=== PATIENT | female | born 1960 | race Caucasian/White ===

== ENCOUNTER 2019-09-06 15:19 | Outpatient (CLI) | payer OTHER, SELFPAY ==
--- NOTE | ~2019-09-06 | MM_ITS ---
EXAMINATION: MM screening joyce BI w mark HISTORY: Screening mammogram TECHNIQUE: Craniocaudal and mediolateral oblique 3-D tomosynthesis images were obtained and synthetic 2-D images were generated. CAD analysis was submitted and interpreted. COMPARISON: 07/17/2018, 01/28/2017 bilateral digital screening mammogram examinations BREAST PARENCHYMAL COMPOSITION: There are scattered areas of fibroglandular density. There is a 4.5 mm circumscribed mass in the inner aspect of the lower inner quadrant of the right homer ast, stable since 01/28/2017, consistent with benign process. Stable scarring in the upper outer quadrant of the left breast, consistent with history of prior repo rtedly benign open left breast biopsy. No suspicious mass or architectural distortion, malignant calcification, skin thickening or retractio n or significant new or developing density is detected. IMPRESSION: 1. No mammographic evidence of malignancy. 2. Recommend routine screening mammography in one year. BI-RADS Category 2: Benign finding(s). Reviewed, dictated and finalized at location A.
== END 2019-09-06 15:20 | disposition home or self-care (01) ==
LOC: ANHIMG 15:27
PROVIDERS: Visit Provider Obstetrics & Gynecology Gynecology
DX: Z12.31 Encounter for screening mammogram for malignant neoplasm of breast (principal)
CPT/HCPCS: 77063; 77067

== ENCOUNTER 2020-12-18 17:15 | Outpatient (CLI) | payer OTHER, SELFPAY ==
--- NOTE | ~2020-12-18 | MM_ITS ---
EXAMINATION: MM screening [facility] BI w mark HISTORY: Screening mammogram TECHNIQUE: Craniocaudal and mediolateral oblique 3-D tomosynthesis images were obtained and synthetic 2-D images were generated. CAD analysis was submitted and interpreted. COMPARISON: 09/06/2019, 07/17/2018, 01/19/1917 BREAST PARENCHYMAL COMPOSITION: There are scattered areas of fibroglandular density. FINDINGS: There is stable architectural distortion in the upper outer left breast at the site of prio r excisional biopsy. There is no evidence of suspicious mass, calcification, or architectural distort ion to suggest malignancy in either breast. There has been no suspicious interval change. IMPRESSION: 1. No mammographic evidence of malignancy. 2. Recommend routine screening mammography in one year. BI-RADS Category 2: Benign finding(s). Reviewed, dictated and finalized at location A.
== END 2020-12-18 17:16 | disposition home or self-care (01) ==
LOC: ANHIMG 17:19
PROVIDERS: Visit Provider Obstetrics & Gynecology Gynecology
DX: Z12.31 Encounter for screening mammogram for malignant neoplasm of breast (principal)
CPT/HCPCS: 77063; 77067

== ENCOUNTER → 2021-04-29 08:15 | Outpatient (CLI) | payer OTHER, SELFPAY ==
--- NOTE | ~2021-04-29 | US_ITS ---
EXAMINATION: US abdomen complete EXAM DATE: 04/29/2021 08:43 INDICATION: Chest, epigastric pain. Elevated liver enzymes. TECHNIQUE: Multiple grayscale and Doppler images of the complete abdomen were obtained (by a technolo gist who performed the scan) and subsequently reviewed. Comparison is made to prior examination from 08/03/2018. FINDINGS: The abdominal aorta is normal in caliber. Visualized portion IVC is patent. The pancreatic head a nd body are normal in appearance. The pancreatic tail is not visualized. The liver has normal echogenicity and contour. There are no focal liver lesions identified. There is no evidence of intrahepatic biliary duct dilation. Portal venous flow was seen in the hepatopedal , normal direction and has normal Doppler waveform. Common bile duct measures 4 mm, which is normal. The gallbladder wall is normal in thickness, with ex pected amount of distention. No sonographic evidence of pericholecystic fluid. There is no cholelit hiases. Technologist performing exam reports patient did not demonstrate sonographic Rehman's sign. Please note that this sign is less reliable in patients who have received pain medication. Right kidney: There is normal contour and echogenicity. It measures 9.5 x 3.3 x 4.1 centimeters. T here are no focal renal lesions identified. There is no hydronephrosis. Left kidney: There is normal contour and echogenicity. It measures 10.2 x 4.0 x 4.9 centimeters. T here are no focal renal lesions identified. There is no hydronephrosis. The spleen measures 9.4 centimeters and is morphologically normal. IMPRESSION: 1. Unremarkable complete abdominal ultrasound exam. Reviewed, dictated and finalized at location A. HER OPERATOR
== END ==
DX: R07.9 Chest pain, unspecified (principal)
CPT/HCPCS: 76700

== ENCOUNTER → 2022-03-03 13:30 | Outpatient (CLI) | payer OTHER, SELFPAY ==
--- NOTE | ~2022-03-03 | MM_ITS ---
EXAMINATION: MM screening joyce BI w mark HISTORY: Screening TECHNIQUE: Craniocaudal and mediolateral oblique 3-D tomosynthesis images were obtained and synthetic 2-D images were generated. CAD analysis was submitted and interpreted. COMPARISON: Comparison to multiple prior studies sequentially, with oldest reviewed study dated 01/28. BREAST PARENCHYMAL COMPOSITION: There are scattered areas of fibroglandular density. FINDINGS: There is no evidence of suspicious mass, calcification, or architectural distortion to sugg est malignancy in either breast. There has been no suspicious interval change. IMPRESSION: 1. No mammographic evidence of malignancy. 2. Recommend routine screening mammography in one year. BI-RADS Category 1: Negative Reviewed, dictated and finalized at location A.
== END ==
PROVIDERS: PCP Obstetrics & Gynecology Gynecology; Visit Provider Obstetrics & Gynecology Gynecology
DX: Z12.31 Encounter for screening mammogram for malignant neoplasm of breast (principal)
CPT/HCPCS: 77063; 77067

== ENCOUNTER 2022-07-26 18:26 | Emergency (ER) | payer OTHER, SELFPAY ==
--- NOTE | ~2022-07-26 | XR_ITS ---
EXAMINATION: [id number] INDICATION: Left chest pain TECHNIQUE: A frontal view of the chest and 3 views of the left ribs were obtained. COMPARISON: None. FINDINGS: The lungs are free of acute opacities. No pleural effusion or pneumothorax. The cardiomedia stinal silhouette is normal. There appear to be nondisplaced anterolateral fractures of the left eigh th and ninth ribs.. IMPRESSION: 1. Apparent nondisplaced anterolateral fractures of the left eighth and ninth ribs. 2. No acute cardiopulmonary abnormality. Reviewed, dictated and finalized at location F. IMPRESSION: 1. Apparent nondisplaced anterolateral fractures of the left eighth and ninth r ibs. 2. No acute cardiopulmonary abnormality.
[2022-07-26 18:37] VITALS: BP 139/102; PULSE 78; RESP 16; TEMP 36.7; O2SAT 100
--- NOTE | 2022-07-26 18:59 | ED.CHESTPAIN ---
HPI - Chest Pain General Chief Complaint: Chest Pain Stated Complaint: fall,lt side injury Time Seen by Provider: 07/26/22 18:50 Source: patient, RN notes reviewed and old records reviewed Mode of arrival: ambulatory Limitations: no limitations History of Present Illness HPI narrative: 62 year old female presents to [facility] with complaints of pain to the left rib cage area after tripping over a toy today and landing on her left side on hardwood floor. Patient also has area of swelling to her left knee also but pain not as severe as her rib area which she rates as 8/10. MD complaint: other (left rib pain, contusion left knee) Onset (ago): hour(s) (today) Pain scale (0-10): 8 Treatment prior to arrival: none Related Data Home Medications Medication Instructions Recorded Confirmed alprazolam 0.25 mg tablet (Xanax) 0.25 mg PO DAILY 07/26/22 07/26/22 aspirin 81 mg tablet 81 mg PO DAILY 07/26/22 07/26/22 Allergies Allergy/AdvReac Type Severity Reaction Status Date / Time ciprofloxacin [From Cipro] Allergy Rash Verified 07/26/22 18:35 codeine Allergy Confusion Verified 07/26/22 18:35 Review of Systems Review of Systems: CONSTITUTIONAL: Denies fever, chills, or sweats. EYES: Denies visual changes, redness, or discharge. ENT: Denies rhinorrhea, congestion, sore throat, or otalgia. CARDIOVASCULAR: Denies chest pain, palpitations, or edema.Reports left rib pain RESPIRATORY: Denies cough or dyspnea. GASTROINTESTINAL: Denies abdominal pain, nausea, vomiting, or diarrhea. GENITOURINARY: Denies dysuria or hematuria. SKIN: Denies rash or itching. MUSCULOSKELETAL: Denies back pain,left knee pain pain, or myalgia. NEUROLOGIC: Denies headache, numbness, or weakness. PSYCHIATRIC: Positive for anxiety or depression. All systems reviewed & are unremarkable except as noted in HPI and below PMFSH Past Medical History Medical History (Updated 07/29/22 @ 10:19 by Deann Pisano NP) Anxiety Aortic aneurysm Heart valve disorder Social History Social History (Updated 07/29/22 @ 10:09 by Deann Pisano NP) Living arrangements: with family Gender identity (if verbalized by the patient): Female Comments At time of signature, agree with nursing past medical, surgical, social and family history. There is no relevant family history pertinent to the presenting complaint Exam Narrative: GENERAL: Well-appearing, well-nourished, and in no acute distress. HEAD: Normocephalic, atraumatic. EYES: PERRLA and EOMI. ENT: Nares clear, no rhinorrhea or epistaxis. Mucous membranes moist.TM's normal, throat pink with no swelling NECK: Supple. no lymphadenopathy CHEST: Clear to auscultation. No respiratory distress. pain left rib cage, SAO2 100% on room air HEART: Regular rate and rhythm. No murmur heard. Normal peripheral pulses. ABDOMEN: Soft, nontender, nondistended, normal active bowel sounds. EXTREMITIES: Normal range of motion. No edema. small amount of swelling and bruising to left knee,full ROM SKIN: Warm, dry, no rash. NEURO: No focal deficits. Alert and oriented Course Course Emergency Course: Patient is aware of diagnosis, understands and agrees to treatment plan.? Anticipatory guidance given.? Patient agrees to follow-up as directed and is aware of reasons to seek care at the emergency department. Portions of this record may have been created with voice recognition software Level of Care: Express Care Visit Vital Signs Vital signs: Vital Signs Temperature 36.7 C 07/26/22 18:37 Pulse Rate 78 07/26/22 18:37 Respiratory Rate 16 07/26/22 18:37 Blood Pressure 139/102 H 07/26/22 18:37 Pulse Oximetry 100 07/26/22 18:37 Oxygen Delivery Room Air 07/26/22 18:37 Temperature 36.7 C 07/26/22 18:37 Pulse Rate 78 07/26/22 18:37 Respiratory Rate 16 07/26/22 18:37 Blood Pressure 139/102 H 07/26/22 18:37 Pulse Oximetry 100 07/26/22 18:37 Oxygen Delivery Room Air 07/26/22 18:37 Reviewed
== END 2022-07-26 19:31 | disposition home or self-care (01) ==
PROVIDERS: Emergency Provider Registered Nurse; PCP Obstetrics & Gynecology Gynecology
DX: S22.42XA Multiple fractures of ribs, left side, initial encounter for closed fracture (principal); S80.02XA Contusion of left knee, initial encounter; Z79.82 Long term (current) use of aspirin; W01.0XXA Fall on same level from slipping, tripping and stumbling without subsequent striking against object, initial encounter
CPT/HCPCS: 71101; 99213; G0463

== ENCOUNTER 2022-11-05 16:55 | Emergency (ER) | payer OTHER, SELFPAY ==
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
[2022-11-05 17:15] VITALS: BP 136/93; PULSE 88; RESP 16; TEMP 36.8; O2SAT 100
== END 2022-11-05 17:47 | disposition home or self-care (01) ==
PROVIDERS: Emergency Provider Nurse Practitioner Family
DX: S50.812A Abrasion of left forearm, initial encounter (principal); S50.12XA Contusion of left forearm, initial encounter; V43.52XA Car driver injured in collision with other type car in traffic accident, initial encounter; F41.9 Anxiety disorder, unspecified; Z79.82 Long term (current) use of aspirin
CPT/HCPCS: 73090; 99213; G0463

== ENCOUNTER 2023-02-19 14:54 | Emergency (ER) | payer MEDICARE, SELFPAY ==
--- NOTE | ~2023-02-19 | XR_ITS ---
EXAMINATION: XR chest 2V Exam Date/Time: 02/19/2023 15:05 CDT HISTORY: cough x 2 weeks Comparison: 08/03/2018. RESULT: Lines, tubes, and devices: None. Lungs and pleura: Biapical pleural scarring, otherwise clear. Cardiomediastinal silhouette: Stable. Other: No acute osseous or upper abdominal finding. IMPRESSION: No acute cardiopulmonary process. Reviewed, dictated and finalized at location K.
[2023-02-19 15:06] VITALS: BP 121/92; PULSE 82; RESP 16; TEMP 36.6; O2SAT 100
--- NOTE | 2023-02-19 15:28 | ED.GENADULT ---
HPI - General Adult General Chief complaint: Upper Respiratory Infection Stated complaint: Congestion Source: patient Mode of arrival: ambulatory Limitations: no limitations History of Present Illness HPI narrative: Patient presents for evaluation of a cough for the last 2 weeks. She had several family members who were also ill but their symptoms have all improved. Cough is productive of green sputum. She has sinus congestion and thick green nasal drainage. She has some mild shortness of breath at baseline but has slightly worse symptoms at present time. She has a sore throat that she attributes to a frequent cough. She denies any fever, chills, nausea, vomiting, diarrhea. She has tried several [id number] agents without improvement in her symptoms or after. She does not smoke. Related Data Home Medications Medication Instructions Recorded Confirmed alprazolam 0.25 mg tablet (Xanax) 0.25 mg PO DAILY 07/26/22 02/19/23 aspirin 81 mg tablet 81 mg PO DAILY 07/26/22 02/19/23 cyclosporine 0.05 % eye drops in a 1 drp EACH EYE BID 02/19/23 02/19/23 dropperette (Restasis) Allergies Allergy/AdvReac Type Severity Reaction Status Date / Time ciprofloxacin [From Cipro] Allergy Rash Verified 02/19/23 15:07 codeine Allergy Confusion Verified 02/19/23 15:07 Review of Systems Review of Systems: CONSTITUTIONAL: Denies fever, chills, or sweats. EYES: Denies visual changes, redness, or discharge. ENT: Reports sinus congestion, thick green drainage from the nares, and sore throat. Denies otalgia. CARDIOVASCULAR: Denies chest pain, palpitations, or edema. RESPIRATORY: reports productive cough of green sputum and shortness of breath. GASTROINTESTINAL: Denies abdominal pain, nausea, vomiting, or diarrhea. GENITOURINARY: Denies dysuria or hematuria. SKIN: Denies rash or itching. MUSCULOSKELETAL: Denies back pain, joint pain, or myalgia. NEUROLOGIC: Denies headache, numbness, dizziness, or weakness. PSYCHIATRIC: Denies anxiety or depression. [facility] Past Medical History Medical History Anxiety Aortic aneurysm Heart valve disorder Surgical History Surgical History H/O dilation and curettage History of Family History Family History (Updated 02/19/23 @ 15:34 by Zoran Vazquez, [facility], ) Mother Family history non-contributory Social History Social History Smoking status: Never smoker Substance use: never Living arrangements: with family Gender identity (if verbalized by the patient): Female Sexual Orientation (if Verbalized by the Patient): Straight or Heterosexual Spiritual care concerns: No Exam Narrative: GENERAL: Well-appearing, well-nourished, and in no acute distress. HEAD: Normocephalic, atraumatic. EYES: PERRLA and EOMI. ENT: There is frontal and bilateral maxillary sinus tenderness. There is thick green drainage in nares bilaterally. No epistaxis. Mucous membranes moist. Oropharynx without tonsillar hypertrophy exudate or other lesions. Bilateral TMs pearly graham nonbulging NECK: Supple. No adenopathy or masses. No carotid bruits or JVD CHEST: Clear to auscultation. No respiratory distress. No wheezes rales or rhonchi HEART: Regular rate and rhythm. No murmur heard. Normal peripheral pulses. ABDOMEN: Soft, nontender, nondistended, normal active bowel sounds. EXTREMITIES: Normal range of motion. No edema. SKIN: Warm, dry, no rash. NEURO: No focal deficits. Alert and oriented x3. PSYCH: Normal mood and affect. Course Course Emergency Course: This is a 63-year-old female who presented for evaluation of a cough which has been persistent for several weeks. Chest x-ray was normal. She does meet criteria for bacterial sinusitis based on duration of time in which she has been symptomati
== END 2023-02-19 16:20 | disposition home or self-care (01) ==
PROVIDERS: Emergency Provider Nurse Practitioner
DX: J01.90 Acute sinusitis, unspecified (principal); F41.9 Anxiety disorder, unspecified
CPT/HCPCS: 71046; 99213; G0463

== ENCOUNTER → 2023-04-04 08:40 | Outpatient (CLI) | payer MEDICARE, SELFPAY ==
--- NOTE | ~2023-04-04 | CT_ITS ---
EXAMINATION: CTA chest DATE: 04/04/2023 09:50 AUTOMOTIVE ELECTRICIAN HELPER INDICATION: Thoracic aortic ectasia TECHNIQUE: Computed tomographic angiography (CTA) of the chest was performed with 100 mL Omnipaque-35 0 intravenous contrast. The dose-length product was 372.39 mGy-cm. Maximum intensity projection 3D-re constructions of the aorta and other arteries were constructed by the technologist on a separate work station. COMPARISON: CT dated 05/18/2016. FINDINGS: There is a fusiform ascending thoracic aortic aneurysm measuring 4.4 x 4.2 cm at the root o f the aorta. No evidence for dissection. No pulmonary embolism. There is a new nodule there is nodula r consolidation of the right middle lobe measuring 1.5 cm, image 83. There is nodular consolidation o f the right upper lobe anteriorly. There is a new nodule in the lingula measuring 1.4 cm, image 86. T here is focal consolidation of the right lower lobe medially. Moderate thoracic spondylosis. No thora cic lymphadenopathy. The upper abdomen is unremarkable. IMPRESSION: 1. New pulmonary nodules, suspicious for bronchogenic carcinoma. Consider correlation with pet/CT sca n or percutaneous biopsy. 2: Stable fusiform aneurysm of the ascending aorta measuring 4.4 cm. 3: Multifocal consolidation of the right upper and lower lobe which may be infectious/inflammatory. Reviewed, dictated and finalized at location B. MOTIVE ELECTRICIAN HELPER IMPRESSION: 1. New pulmonary nodules, suspicious for bronchogenic carcinoma. Consider corre lation with pet/CT scan or percutaneous biopsy. 2: Stable fusiform aneurysm of the ascending aorta measuring 4.4 cm. 3: Multifocal consolidation of the right upper and lower lobe which may be infe ctious/inflammatory.
[2023-04-04 09:03] LABS: Estimated Glomerular Filt Rate > 60
== END ==
PROVIDERS: PCP Internal Medicine Cardiovascular Disease; Visit Provider Internal Medicine Cardiovascular Disease
DX: I77.810 Thoracic aortic ectasia (principal); R00.2 Palpitations; R06.02 Shortness of breath; M79.609 Pain in unspecified limb; I70.219 Atherosclerosis of native arteries of extremities with intermittent claudication, unspecified extremity; Q23.1 Congenital insufficiency of aortic valve; E66.9 Obesity, unspecified; F41.1 Generalized anxiety disorder; R07.9 Chest pain, unspecified
CPT/HCPCS: 71275; Q9967

== ENCOUNTER → 2023-06-22 11:55 | Outpatient (CLI) | payer MEDICARE, SELFPAY ==
--- NOTE | ~2023-06-22 | MM_ITS ---
EXAMINATION: MM screening joyce BI w mark HISTORY: Screening TECHNIQUE: Craniocaudal and mediolateral oblique 3-D tomosynthesis images were obtained and synthetic 2-D images were generated. CAD analysis was submitted and interpreted. COMPARISON: Comparison to multiple prior studies sequentially, with oldest reviewed study dated 01/28. BREAST PARENCHYMAL COMPOSITION: Not dense: There are scattered areas of fibroglandular density. FINDINGS: There is developing architectural distortion in the upper outer quadrant of the left breast , middle third. The right breast is stable without evidence for malignancy. IMPRESSION: 1. Developing architectural distortion of the left breast. 2. Additional mammographic views and possible breast ultrasound are recommended. BI-RADS Category 0: Incomplete: Needs additional imaging evaluation. Reviewed, dictated and finalized at location A. NITIES INSTRUCTOR IMPRESSION: 1. Developing architectural distortion of the left breast. 2. Additional mammographic views and possible breast ultrasound are recommended . BI-RADS Category 0: Incomplete: Needs additional imaging evaluation.
== END ==
PROVIDERS: PCP Obstetrics & Gynecology Gynecology; Visit Provider Obstetrics & Gynecology Gynecology
DX: Z12.31 Encounter for screening mammogram for malignant neoplasm of breast (principal); R92.8 Other abnormal and inconclusive findings on diagnostic imaging of breast
CPT/HCPCS: 77063; 77067

== ENCOUNTER 2023-07-22 09:11 | Outpatient (CLI) | payer MEDICARE, SELFPAY ==
--- NOTE | ~2023-07-22 | MMUS_ITS ---
EXAMINATION: MM diagnostic joyce LT w mark, US breast LT limited HISTORY: Follow-up architectural distortion of the left breast. History of previous benign biopsy. TECHNIQUE: Additional 3-D tomosynthesis images of the left breast were performed and synthetic 2-D im ages were generated. CAD analysis was submitted and interpreted. High resolution Limited left breast ultrasound was performed. COMPARISON: Comparison to multiple prior studies sequentially, with oldest reviewed study dated 07/17. BREAST PARENCHYMAL COMPOSITION: Not dense: There are scattered areas of fibroglandular density. FINDINGS: MAMMOGRAPHIC FINDINGS: Architectural distortion and focal calcifications stable in the upper outer quadrant of the left josafat st allowing for differences of technique, likely secondary to prior benign biopsy. ULTRASOUND: Limited left breast ultrasound: At 12-1:00, 5 cm from the nipple, there is an echogenic foci with pos terior shadowing corresponding to the calcification seen on mammogram. No discrete mass identified. IMPRESSION: 1. No evidence for malignancy in the left breast. Benign findings. 2. Routine yearly screening mammogram and regular clinical breast examination are recommended. BI-RADS Category 2: Benign finding(s). Reviewed, dictated and finalized at location A. IMPRESSION: 1. No evidence for malignancy in the left breast. Benign findings. 2. Routine yearly screening mammogram and regular clinical breast examination a re recommended. BI-RADS Category 2: Benign finding(s).
== END 2023-07-22 09:12 ==
LOC: MICIMG 09:12
PROVIDERS: PCP Obstetrics & Gynecology Gynecology; Visit Provider Obstetrics & Gynecology Gynecology
DX: R92.8 Other abnormal and inconclusive findings on diagnostic imaging of breast (principal)
CPT/HCPCS: 76642; 77061; 77065; G0279

== ENCOUNTER 2024-04-27 15:27 | Emergency (ER) | payer MEDICARE, SELFPAY ==
[2024-04-27 16:47] VITALS: BP 110/81; PULSE 86; RESP 16; TEMP 36.4; O2SAT 97
--- NOTE | 2024-04-27 18:33 | ED.URI ---
HPI - URI/Sore Throat General Chief Complaint: Upper Respiratory Infection Stated Complaint: Upper Respiratory Symptoms Time Seen by Provider: 04/27/24 18:39 Source: patient, RN notes reviewed and old records reviewed Mode of arrival: ambulatory Limitations: no limitations History of Present Illness HPI Narrative: 64-year-old female who presents to [facility] with complaints of chills, fever, cough which is productive, sinus drainage for the past 5 days. Patient has been taking naproxen for her discomfort. Patient reports that she had some fevers when she was first ill which has resided, also had some diarrhea which has resolved. Patient reports that she has had some greenish productive cough and feels some wheezing when she lays down. MD elicited complaint: fever, cough and nasal congestion Onset (ago): day(s) (5) Severity: moderate Able to tolerate fluids by mouth: Yes Treatments prior to arrival: other (naproxen) Related Data Home Medications ?Medication ?Instructions ?Recorded ?Confirmed ?Last Taken ?Type aspirin 81 mg tablet 81 mg PO DAILY 07/26/22 02/19/23 Unknown History cyclosporine 0.05 % eye drops in a 1 drp EACH EYE BID 02/19/23 02/19/23 Unknown History dropperette (Restasis) alprazolam 0.5 mg tablet mg 04/27/24 Unknown History Allergies Allergy/AdvReac Type Severity Reaction Status Date / Time ciprofloxacin (From Cipro) Allergy Rash Verified 04/27/24 17:56 codeine Allergy Confusion Verified 04/27/24 17:56 Review of Systems Review of Systems: CONSTITUTIONAL:Reports malaise, chills, sweats, or fever. EYES: Denies visual changes, redness, or discharge. ENT: Reports rhinorrhea, congestion, sinus pain, no otalgia and no sore throat. CARDIOVASCULAR: Denies chest pain, palpitations, or edema. RESPIRATORY: Reports productive cough.? Denies dyspnea. GASTROINTESTINAL: Denies abdominal pain, nausea, vomiting, some diarrhea SKIN: Denies rash or itching. MUSCULOSKELETAL: Denies myalgia. NEUROLOGIC: Denies headache. All systems reviewed & are unremarkable except as noted in HPI and below PMFSH Past Medical History Medical History Anxiety Heart valve disorder Aortic aneurysm Surgical History Surgical History History of H/O dilation and curettage Family History Family History Mother Family history non-contributory Social History Social History Smoking status: Never smoker Substance use: never Living arrangements: with family Gender identity (if verbalized by the patient): Female Sexual Orientation (if Verbalized by the Patient): Straight or Heterosexual Spiritual care concerns: No Comments At time of signature, agree with nursing past medical, surgical, social and family history. There is no relevant family history pertinent to the presenting complaint Exam Narrative: GENERAL: Well-appearing, well-nourished, and in no acute distress. HEAD: Normocephalic EYES: PERRLA, conjunctivae clear ENT: Nares clear, turbinates edematous and erythematous, clear to yellowish discharge. Mucous membranes moist. TM pearly graham with dull light reflex bilaterally; no tragal tenderness. Oropharynx erythematous without lesions. Tonsils not enlarged and without exudate, no drooling, no hoarseness, no trismus, uvula midline, post nasal drainage. NECK: Supple. No lymphadenopathy CHEST: scattered wheezes on auscultation, breath sounds equal.positive for wheezing,no rhonchi, rales, or stridor. No respiratory distress, speaks in full sentences, positive for productive cough SAO2 97% on room air HEART: Regular rate and rhythm. No murmur heard. SKIN: Warm, dry, no rash. NEURO: Alert and oriented x3. PSYCH: Normal mood and affect Course Course Emergency Course: Patient is aware of diagnosis, understands and agrees to treatment plan.? Anticipatory guidance given.? Patient agrees to follow-up as directed and is aware of reasons to seek care at the emergency department. Portions of this record may have been created with voice recognition software Level of Care: Express Care Visit Vital Signs Vital signs: Vital Signs Temperature 36.4 C L 04/27/24 16:47 Pulse Rate 86 04/27/24 16:47 Respiratory Rate 16 04/27/24 16:47 Blood Pressure 110/81 04/27/24 16:47 Pulse Oximetry 97 04/27/24 16:47 Temperature 36.4 C L 04/27/24 16:47 Pulse Rate 86 04/27/24 16:47 Respiratory Rate 16 04/27/24 16:47 Blood Pressure 110/81 04/27/24 16:47 Pulse Oximetry 97 04/27/24 16:47 Oxygen Delivery Room Air 04/27/24 17:20 Reviewed MDM - URI/Sore Throat MDM Narrative Medical decision making narrative: Differential diagnosis considered: Samuel virus, strep pharyngitis, allergic rhinitis, upper respiratory tract infection, sinusitis, rhinosinusitis, nasopharyngitis. viral pharyngitis, otitis media, otitis externa, pneumonia, bronchitis, viral cough syndrome, viral syndrome, and influenza.? Exam findings show no acute concerns or changes; patient is non-toxic appearing and is in no distress.? Patient is appropriate for outpatient treatment and follow-up. Differential Diagnosis Differential diagnosis: Likely upper respiratory infection, sinusitis, viral infection, bronchitis, influenza and other (COVID) Medical Records Attestation: I reviewed the patient's medical records. Lab Data Attestation: I reviewed the patient's lab results. Lab results narrative: Influenza A negative, Influenza B negative, Covid antigen negative Labs: Lab Results 04/27/24 Range/Units 16:48 POC Influenza A Ag Negative (Negative) POC Influenza B Ag Negative (Negative) POC SARS CoV-2 Ag Negative (Negative) reviewed Critical Care Time Critical Care Time Critical Care Time: No Discharge Plan Discharge Clinical Impression: Bronchitis Patient Disposition: Home, Self-Care Condition: Stable Instructions: Antibiotic Form, Acute Bronchitis (ED) Additional Instructions: Increase fluids especially juices and water [id number] cough and cold medicine of your choice for your symptoms Zyrtec Claritin or Shannon daily Continue your inhaler/nebulizer as directed Steroids as directed--take with food heat to the face 20-30 minutes 4-6 times a day for pain Salt water gargles, throat lozenges or throat sprays as desired Antibiotic as directed--finished the medication If your symptoms persist, change or worsen significantly before you can contact your personal physician then please, without delay, go to the emergency department for further evaluation. Follow-up with PCP in 7-10 days or sooner if needed Patient Language: Macedonian Prescriptions: New albuterol sulfate 90 mcg/actuation HFA aerosol inhaler 2 puff inhalation QID PRN (Reason: shortness of breath or wheezing) Qty: 6.7 0RF prednisone 20 mg tablet 20 mg PO BID Qty: 10 0RF Rx Instructions: take with food azithromycin 250 mg tablet See Rx Instructions .ROUTE .COMPLEX Qty: 6 0RF Rx Instructions: For 250 mg dose pack: take 500 mg today (day 1), then 250 mg for 4 days (days 2-5) No Action Adult Low Dose Aspirin 81 mg Tablet 81 mg PO DAILY alprazolam 0.5 mg tablet cyclosporine [Restasis] 0.05 % dropperette 1 drp EACH EYE BID Follow-up/Referrals: PHYSICIAN,SEEING EYE DOG TRAINER [Primary Care Provider] - Time of Disposition: 18:50 Quality [place] Coma Scale Eyes: Open Verbal: Oriented and Alert Motor: Follows Commands Courtney Coma Total Score: 15
[2024-04-27 18:41] LABS: EDCOVIDSCREEN Negative (Negative); EDINFLUASCREEN Negative (Negative); EDINFLUBSCREEN Negative (Negative)
== END 2024-04-27 18:55 | disposition home or self-care (01) ==
PROVIDERS: Emergency Provider Registered Nurse
DX: J40 Bronchitis, not specified as acute or chronic (principal); Z20.822 Contact with and (suspected) exposure to COVID-19
CPT/HCPCS: 87426; 87804; 99213; G0463

== ENCOUNTER 2024-06-30 11:28 | Outpatient (CLI) | payer MEDICARE, SELFPAY | END 2024-06-30 11:29 | disposition home or self-care (01) | PROVIDERS: PCP Obstetrics & Gynecology Gynecology; Visit Provider Obstetrics & Gynecology Gynecology | DX: Z12.31 Encounter for screening mammogram for malignant neoplasm of breast (principal) | CPT/HCPCS: 77063; 77067 ==